=== PATIENT | female | born 1975 | race Caucasian/White ===

== ENCOUNTER 2019-11-16 19:39 | Emergency (ER) | payer MEDICAID, OTHER ==
[2019-11-16 19:56] VITALS: BP 140/94; PULSE 86
--- NOTE | 2019-11-16 19:56 | EDM.PDOC ---
ED HPI GENERAL MEDICAL PROBLEM - General Chief Complaint: Skin Complaint Stated Complaint: BIT BY DOG Time Seen by Provider: 11/16/19 19:43 Source of Information: Reports: Patient, Family History Limitations: Reports: No Limitations - History of Present Illness INITIAL COMMENTS - FREE TEXT/NARRATIVE: Patient states about 30 minutes ago prior to arrival she was bit by neighbor's dog when getting in between her dog and the neighbors dog. She states the dog weighs approximately 40 pounds and there is a small [employer] like dog all of her shots are up-to-date Patient states she has no medical problems Onset: Today, Sudden Duration: Minutes: Location: Reports: Upper Extremity, Right Quality: Reports: Pressure Hand Pain Score (Numeric/FACES): 3 - Related Data Allergies Allergy/AdvReac Type Severity Reaction Status Date / Time No Known Allergies Allergy Verified 11/16/19 19:47 Home Meds: Home Meds Omeprazole 20 mg PO QAM 03/25/15 [History] lamoTRIgine [Lamictal] 350 mg PO QAM 03/25/15 [History] Venlafaxine [Effexor] 225 mg PO DAILY 02/21/16 [History] Methylphenidate HCl [Methylphenidate LA] 11/16/19 [History] lisinopriL [Lisinopril] 1 tab PO DAILY 11/16/19 [History] Past Medical History HEENT History: Reports: Impaired Vision Cardiovascular History: Reports: Hypertension Respiratory History: Reports: Sleep Apnea Other Respiratory History: Patient use CPAP machine at night. 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 Musculoskeletal History: Reports: Back Pain, Chronic, Other (See Below) Other Musculoskeletal History: L shoulder pain Neurological History: Reports: Other (See Below) Other Neuro History: restless legs Psychiatric History: Reports: Anxiety, Depression, Other (See Below) Other Psychiatric History: Borderline personality. Endocrine/Metabolic History: Reports: Obesity/BMI 30+ Hematologic History: Reports: Iron Deficiency Other Dermatologic History: history of eczema - Past Surgical History GI Surgical History: Reports: Bariatric Procedure Female Surgical History: Reports: Tubal Ligation Musculoskeletal Surgical History: Reports: Carpal Tunnel - History Comment History Comment: Sleep disorder Social & Family History - Caffeine Use Caffeine Use: Reports: Energy Drinks ED ROS GENERAL - Review of Systems Review Of Systems: See Below Constitutional: Reports: No Symptoms HEENT: Reports: No Symptoms GI/Abdominal: Reports: No Symptoms Musculoskeletal: Denies: Joint Pain, Joint Swelling, Muscle Pain, Muscle Stiffness Skin: Reports: Other (Superficial laceration and puncture wound to the right hand laceration on the fourth puncture wounds on the third second) Neurological: Reports: No Symptoms, Other (No loss of sensation or coldness no discoloration patient states no pain with movement of the finger). Denies: Numbness, Tingling Hematologic/Lymphatic: Reports: No Symptoms Immunologic: Reports: No Symptoms ED EXAM, SKIN/RASH Exam: See Below Exam Limited By: No Limitations General Appearance: Alert, WD/WN, No Apparent Distress Extremities: Normal Inspection, Normal Range of Motion, Non-Tender, Normal Capillary Refill, Other (Exam to the right hand right fourth there is 1/2 cm x 3 mm x 1 mm laceration across the DIP area of the dorsal part of the hand there is a superficial puncture wound to the posterior second digit at the DIP area as well and a superficial puncture wound to the third posterior DIP area patient has normal FDS FDP and extensors across all fingers normal cap refill equal soft touch sensation she has full range of motion normal abduction abduction opposition) Neurological: Alert, Oriented, CN II-XII Intact, Normal Cognition, Normal Gait, No Motor/Sensory Deficits Psychiatric: Normal Affect, Normal Mood Course - Vital Signs Text/Narrative:: We will cover the patient with Augmentin 875 1 p.o. twice daily x10 days as per Mabel antimicrobial guide Patient was educated at length on any wound infection and signs and symptoms of tenosynovitis and for need for follow-up patient also educated on reason why wound was not closed understanding with the reason Patient was soaked in normal saline Hibiclens dressed with Neosporin and Telfa pad Last Recorded V/S: Last Vital Signs Temp 36.6 C 11/16/19 19:52 Pulse 86 11/16/19 19:52 Resp 14 11/16/19 19:52 BP 140/94 H 11/16/19 19:52 Pulse Ox 94 L 11/16/19 19:52 - Orders/Labs/Meds Meds: Medications Discontinued Medications Generic Name Dose Route Start Last Admin Trade Name Freq PRN Reason Stop Dose Admin Amoxicillin/Clavulanate Potassium 1 tab 11/16/19 20:03 11/16/19 20:08 Augmentin 875 Mg/125 Mg PO 11/16/19 20:04 1 tab ONETIME ONE Administration Departure - Departure Time of Disposition: 19:55 Disposition: Home, Self-Care 01 Condition: Good Clinical Impression: Dog bite of finger - Discharge Information *PRESCRIPTION DRUG MONITORING PROGRAM REVIEWED*: No *COPY OF PRESCRIPTION DRUG MONITORING REPORT IN PATIENT JULIA: No Instructions: Animal Bite, Adult, [id number] Referrals: Trish Hardin MD [Primary Care Provider] - Forms: ED Department Discharge Additional Instructions: Keep the area clean with hot warm soapy water 3-4 times a day apply Neosporin 3- 4 times a day keep it covered and dry Take all of your antibiotics Augmentin 875 1 tablet every 12 hours until the last pill is finished Follow-up with your regular doctor in 24 to 48 hours make sure you watch for any redness swelling pain stiffness to the finger or anything that feels abnormal make sure you go to your regular doctor at the first sign of any of this Return to the ER if anything changes or gets worse You may return to work in 3 days off work sure you wash your hands keep the area clean and dry , wear gloves as needed and directed Sepsis Event Note - Focused Exam Date Exam was Performed: 11/17/19 Time Exam was Performed: 13:19 - Problem List & Annotations (1) Dog bite of finger SNOMED Code(s): 617598559 Code(s): S61.259A - OPEN BITE OF UNSP FINGER WITHOUT DAMAGE TO NAIL, INIT ENCNTR; W54.0XXA - BITTEN BY DOG, INITIAL ENCOUNTER Status: Acute - Assessment/Plan Plan: 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
[2019-11-16] MEDS ORDERED: Amoxicillin/Clavulanate K 875-125 MG Tab PO ONE (20:03)
== END 2019-11-16 20:23 | disposition home or self-care (01) ==
LOC: VM.ED 19:39
DX: S61.254A Open bite of right ring finger without damage to nail, initial encounter (principal); S60.470A Other superficial bite of right index finger, initial encounter; S60.472A Other superficial bite of right middle finger, initial encounter; I10 Essential (primary) hypertension; G47.30 Sleep apnea, unspecified; E66.9 Obesity, unspecified; F41.9 Anxiety disorder, unspecified; F32.9 Major depressive disorder, single episode, unspecified; Z79.899 Other long term (current) drug therapy; W54.0XXA Bitten by dog, initial encounter; Y93.89 Activity, other specified
CPT/HCPCS: 99283; A9270

== ENCOUNTER 2019-12-11 05:15 | Emergency (ER) | payer MEDICAID ==
[2019-12-11] MEDS ORDERED: Sodium Chloride 0.9% 10 ML Syringe FLUSH PRN (05:21)
[2019-12-11] MEDS ORDERED: EPINEPHrine 1 MG/1 ML Amp IM ONE (05:25)
[2019-12-11] MEDS ORDERED: methylPREDNISolone Sodium Succinate 125 MG/2 ML SDV IV ONE (05:28)
[2019-12-11] MEDS ORDERED: diphenhydrAMINE 50 MG/ML SDV IVPUSH ONE (05:28)
[2019-12-11] MEDS ORDERED: Sodium Chloride 0.9% 1,000 ML IV ONE (05:34)
[2019-12-11] MEDS ORDERED: Ondansetron 4 MG/2 ML SDV IVPUSH ONE (05:39)
--- NOTE | 2019-12-11 05:48 | EDM.PDOC ---
ED HPI GENERAL MEDICAL PROBLEM - General Chief Complaint: Allergic Reaction Time Seen by Provider: 12/11/19 05:15 Source of Information: Reports: Patient History Limitations: Reports: No Limitations - History of Present Illness INITIAL COMMENTS - FREE TEXT/NARRATIVE: Pt. presents to ER with complaints of swelling to lower lip. Pt. states that she was at work when it started. She denies any new medications or foods. She states that she takes lisinopril and metoprolol for hypertension and has for some time. She denies any trouble breathing. Complains of tingling sensation and swelling to R side of lower lip and face. No large areas of urticaria. No history of hereditary angioedema that she is aware of. Pt. complains of feeling agitated and shaky. Denies any chest pain or shortness of breath. No fever, chills, or recent illnesses. No nausea, vomiting or diarrhea. - Related Data Allergies Allergy/AdvReac Type Severity Reaction Status Date / Time No Known Allergies Allergy Verified 11/16/19 19:47 Home Meds: Home Meds Omeprazole 20 mg PO QAM 03/25/15 [History] lamoTRIgine [Lamictal] 350 mg PO QAM 03/25/15 [History] Venlafaxine [Effexor] 225 mg PO DAILY 02/21/16 [History] Methylphenidate HCl [Methylphenidate LA] 11/16/19 [History] lisinopriL [Lisinopril] 1 tab PO DAILY 11/16/19 [History] Past Medical History HEENT History: Reports: Impaired Vision Cardiovascular History: Reports: Hypertension Respiratory History: Reports: Sleep Apnea Other Respiratory History: Patient use CPAP machine at night. 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 Musculoskeletal History: Reports: Back Pain, Chronic, Other (See Below) Other Musculoskeletal History: L shoulder pain Neurological History: Reports: Other (See Below) Other Neuro History: restless legs Psychiatric History: Reports: Anxiety, Depression, Other (See Below) Other Psychiatric History: Borderline personality. Endocrine/Metabolic History: Reports: Obesity/BMI 30+ Hematologic History: Reports: Iron Deficiency Other Dermatologic History: history of eczema - Past Surgical History GI Surgical History: Reports: Bariatric Procedure Female Surgical History: Reports: Tubal Ligation Musculoskeletal Surgical History: Reports: Carpal Tunnel - History Comment History Comment: Sleep disorder Social & Family History - Caffeine Use Caffeine Use: Reports: Energy Drinks ED ROS GENERAL - Review of Systems Review Of Systems: See Below Constitutional: Reports: No Symptoms HEENT: Reports: Other (facial swelling/numbness/discomfort) Respiratory: Reports: No Symptoms Cardiovascular: Reports: No Symptoms Endocrine: Reports: No Symptoms GI/Abdominal: Reports: No Symptoms : Reports: No Symptoms Musculoskeletal: Reports: No Symptoms Skin: Reports: No Symptoms Neurological: Reports: No Symptoms Psychiatric: Reports: No Symptoms Hematologic/Lymphatic: Reports: No Symptoms Immunologic: Reports: No Symptoms ED EXAM, GENERAL - Physical Exam Exam: See Below Exam Limited By: No Limitations General Appearance: Alert, WD/WN, No Apparent Distress Eye Exam: Bilateral Eye: EOMI, PERRL Nose: Normal Inspection, Normal Mucosa, No Blood Throat/Mouth: No Airway Compromise, Other (Edema noted to L side of lower lip. No edema to the tongue or oropharynx. Fine, mildly erythematous, finely raised rash to face and upper torso.) Head: Atraumatic, Normocephalic Neck: Normal Inspection, Supple, Non-Tender, Full Range of Motion Respiratory/Chest: No Respiratory Distress, Lungs Clear, Normal Breath Sounds, No Accessory Muscle Use, Chest Non-Tender Cardiovascular: Normal Peripheral Pulses, Regular Rate, Rhythm, No Edema, No Gallop, No JVD, No Murmur, No Rub Peripheral Pulses: 4+: Radial (L) GI/Abdominal: Soft, Non-Tender, No Distention, No Mass (Female) Exam: Deferred Rectal (Female) Exam: Deferred Back Exam: Normal Inspection, Full Range of Motion Extremities: Normal Inspection, Normal Range of Motion, Non-Tender, No Pedal Edema, Normal Capillary Refill Neurological: Alert, Oriented, CN II-XII Intact, Normal Cognition, Normal Gait, Normal Reflexes, No Motor/Sensory Deficits Psychiatric: Normal Affect, Anxious Skin Exam: Warm, Dry, Intact, Normal Color, Rash Lymphatic: No Adenopathy Course - Orders/Labs/Meds Orders: Active Orders 24 hr Category Date Time Status EKG Documentation Completion [RC] STAT Care 12/11/19 05:21 Inactive Chest 1V Frontal [CR] Stat Exams 12/11/19 05:21 Stop Req COMPLEMENT C4 [REF] Stat Lab 12/11/19 05:54 Received Sodium Chloride 0.9% [Saline Flush] Med 03/15/20 05:21 Active 10 ml FLUSH ASDIRECTED PRN Peripheral IV Insertion Adult [OM.PC] Routine Oth 12/11/19 05:23 Ordered Medication Orders Sodium Chloride (Saline Flush) 10 ml FLUSH ASDIRECTED PRN PRN Reason: Keep Vein Open Labs: Laboratory Tests 12/11/19 12/11/19 12/11/19 Range/Units 05:54 05:54 05:54 WBC 8.2 (4.0-10.0) x10^3/uL RBC 3.96 L (4.00-5.50) x10^6/uL Hgb 11.1 L D (12.0-16.0) g/dL Hct 33.5 (33.0-47.0) % MCV 84.6 (78.0-93.0) fL MCH 28.0 (26.0-32.0) pg MCHC 33.1 (32.0-36.0) g/dL RDW Coeff of Giacomo 13.7 (10.0-15.0) % Plt Count 279 (130-400) x10^3/uL Neut % (Auto) 67.6 (50.0-80.0) % Lymph % (Auto) 26.9 (25.0-50.0) % Polk % (Auto) 5.2 (2.0-11.0) % Eos % (Auto) 0.1 (0.0-4.0) % Baso % (Auto) 0.2 (0.2-1.2) % PT 9.8 L (10.0-12.8) SEC INR 0.9 L (2.0-3.5) Sodium 141 (136-145) mmol/L Potassium 3.7 (3.5-5.1) mmol/L Chloride 104 (98-107) mmol/L Carbon Dioxide 25 (21-32) mmol/L Anion Gap 15.7 (10-20) mmol/L BUN 15 (7-18) mg/dL Creatinine 0.9 (0.55-1.02) mg/dL Est Cr Clr Drug Dosing TNP Estimated GFR (MDRD) > 60 Glucose 99 (74-106) mg/dL Calcium 8.5 (8.5-10.1) mg/dL Corrected Calcium 8.90 (8.5-10.1) mg/dL Magnesium 1.8 (1.8-2.4) mg/dL Total Bilirubin 0.2 (0.2-1.0) mg/dL AST 19 (15-37) U/L ALT 20 (14-59) U/L Alkaline Phosphatase 55 (46-116) U/L Troponin I < 0.017 (<=0.056) ng/mL C-Reactive Protein 1.3 H (<=0.9) mg/dL Total Protein 6.8 (6.4-8.2) g/dL Albumin 3.5 (3.4-5.0) g/dL Globulin 3.3 Albumin/Globulin Ratio 1.06 TSH, Ultra Sensitive 2.493 (0.358-3.74) uIU/mL Meds: Medications Generic Name Dose Route Start Last Admin Trade Name Freq PRN Reason Stop Dose Admin Sodium Chloride 10 ml 12/11/19 05:21 Saline Flush FLUSH ASDIRECTED PRN Keep Vein Open Discontinued Medications Generic Name Dose Route Start Last Admin Trade Name Freq PRN Reason Stop Dose Admin Diphenhydramine HCl 50 mg 12/11/19 05:28 12/11/19 05:49 Benadryl IVPUSH 12/11/19 05:29 50 mg ONETIME ONE Administration Epinephrine HCl 0.5 mg 12/11/19 05:25 12/11/19 05:36 Adrenalin IM 12/11/19 05:26 0.5 mg ONETIME ONE Administration Sodium Chloride 1,000 mls @ 1,000 mls/hr 12/11/19 05:34 12/11/19 05:45 Normal Saline IV 12/11/19 06:33 1,000 mls/hr .BOLUS ONE Administration Methylprednisolone Sodium Succinate 125 mg 12/11/19 05:28 12/11/19 05:50 Solu-Medrol IV 12/11/19 05:29 125 mg ONETIME ONE Administration Ondansetron HCl 4 mg 12/11/19 05:39 12/11/19 06:10 Zofran IVPUSH 12/11/19 05:40 4 mg ONETIME ONE Administration Prednisone 1 packet 12/11/19 07:09 12/11/19 07:18 Take Home: Prednisone 20 Mg, 2 Tab Pack PO 12/11/19 07:10 1 packet ONETIME ONE Administration - Re-Assessments/Exams Free Text/Narrative Re-Assessment/Exam: 12/11/19 06:17 Pt. was given epinephrine 0.5mg IM, diphenhydramine 50mg IV, and solu medrol 125mg IV. She was also given zofran 4mg IV for nausea. Very rapidly the size of the lower lip decreased in size. Departure - Departure Time of Disposition: 07:30 Disposition: Home, Self-Care 01 Clinical Impression: Angioedema - Discharge Information Instructions: Angioedema, [id number], Epinephrine injection (Auto-injector), Prednisone tablets Forms: ED Department Discharge Additional Instructions: Prednisone 20 mg 2 tabs once daily for 7 days total Use epi pen as needed for similar reaction Follow-up in clinic in 7-10 days Hold lisinopril. Monitor you blood pressure. You will likely need to start on another agent for your BP. Sepsis Event Note - Focused Exam Date Exam was Performed: 12/11/19 Time Exam was Performed: 07:19 - My Orders Last 24 Hours: My Active Orders 12/11/19 05:21 EKG Documentation Completion [RC] STAT Chest 1V Frontal [CR] Stat Sodium Chloride 0.9% [Saline Flush] 10 ml FLUSH ASDIRECTED PRN 12/11/19 05:23 Peripheral IV Insertion Adult [OM.PC] Routine 12/11/19 05:54 COMPLEMENT C4 [REF] Stat - Assessment/Plan Last 24 Hours: My Active Orders 12/11/19 05:21 EKG Documentation Completion [RC] STAT Chest 1V Frontal [CR] Stat Sodium Chloride 0.9% [Saline Flush] 10 ml FLUSH ASDIRECTED PRN 12/11/19 05:23 Peripheral IV Insertion Adult [OM.PC] Routine 12/11/19 05:54 COMPLEMENT C4 [REF] Stat Plan: Prednisone 20 mg 2 tabs once daily for 7 days total Use epi pen as needed for similar reaction Follow-up in clinic in 7-10 days Hold lisinopril. Monitor you blood pressure. You will likely need to start on another agent for your BP.
[2019-12-11 06:41] LABS: CHLORIDE,CL 104 mmol/L (98-107); SODIUM,NA 141 mmol/L (136-145)
[2019-12-11 06:43] LABS: ANION GAP 15.7 mmol/L (10-20)
[2019-12-11] MEDS ORDERED: Take Home: predniSONE 20 MG, 2 Tab Pack PO ONE (07:09)
[2019-12-11 08:27] VITALS: BP 138/84; PULSE 104
== END 2019-12-11 07:30 | disposition home or self-care (01) ==
LOC: VM.ED 05:15
DX: T78.3XXA Angioneurotic edema, initial encounter (principal)
CPT/HCPCS: 36415; 80053; 83735; 84443; 84484; 85025; 85610; 86140; 86160; 96361; 96372; 96374; 96375; 99284-25; A9270-GY; J0171; J1200; J2405; J2930; J7030

== ENCOUNTER 2020-01-05 14:31 | Emergency (ER) | payer MEDICAID ==
[2020-01-05] MEDS ORDERED: Ondansetron 4 MG/2 ML SDV IV ONE (14:35)
[2020-01-05] MEDS ORDERED: fentaNYL 100 MCG/2 ML SDV IVPUSH ONE (14:37)
[2020-01-05] MEDS: Lactated Ringers 1,000 ML IV ONE ×2 (14:41→16:24)
--- NOTE | 2020-01-05 14:41 | EDM.PDOC ---
ED HPI GENERAL MEDICAL PROBLEM - General Stated Complaint: ER Time Seen by Provider: 01/05/20 14:36 Source of Information: Reports: Patient History Limitations: Reports: No Limitations - History of Present Illness INITIAL COMMENTS - FREE TEXT/NARRATIVE: Patient comes emergency department today by ambulance from home after she was walking down some steps her foot slipped and she fell injuring her right ankle. She did not hit her head. There was no loss of consciousness. She denies any head neck or back pain. It was noted by EMS that she has an obvious deformity to the right ankle. She was given Dilaudid prior to transfer as well as a splint. Patient denies any other injury other than to her right ankle denies any right knee or hip pain. She denies any head neck or back pain or loss of consciousness. Right Ankle Pain Score (Numeric/FACES): 10 - Related Data Allergies Allergy/AdvReac Type Severity Reaction Status Date / Time No Known Allergies Allergy Verified 01/05/20 14:52 Home Meds: Home Meds lamoTRIgine [Lamictal] 350 mg PO QAM 03/25/15 [History] Venlafaxine [Effexor] 150 mg PO DAILY 02/21/16 [History] Methylphenidate HCl [Methylphenidate LA] 40 mg PO DAILY 11/16/19 [History] lisinopriL [Lisinopril] 40 mg PO DAILY 11/16/19 [History] ClonazePAM [KlonoPIN] 0.5 mg PO BID PRN 01/05/20 [History] Iron,Carbonyl/Ascorbic Acid [Iron 100-Vitamin C Tablet] 1 tab PO DAILY 01/05/20 [History] Metoprolol Succinate 50 mg PO BID 01/05/20 [History] Pantoprazole Sodium [Protonix] 40 mg PO DAILY 01/05/20 [History] Venlafaxine HCl [Venlafaxine ER] 75 mg PO DAILY 01/05/20 [History] Past Medical History HEENT History: Reports: Impaired Vision Cardiovascular History: Reports: Hypertension Respiratory History: Reports: Sleep Apnea Other Respiratory History: Patient use CPAP machine at night. 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 Musculoskeletal History: Reports: Back Pain, Chronic, Other (See Below) Other Musculoskeletal History: L shoulder pain Neurological History: Reports: Other (See Below) Other Neuro History: restless legs Psychiatric History: Reports: Anxiety, Depression, Other (See Below) Other Psychiatric History: Borderline personality. Endocrine/Metabolic History: Reports: Obesity/BMI 30+ Hematologic History: Reports: Iron Deficiency Other Dermatologic History: history of eczema - Past Surgical History GI Surgical History: Reports: Bariatric Procedure Female Surgical History: Reports: Tubal Ligation Musculoskeletal Surgical History: Reports: Carpal Tunnel - History Comment History Comment: Sleep disorder Social & Family History - Caffeine Use Caffeine Use: Reports: Energy Drinks Review of Systems - Review of Systems Review Of Systems: Comprehensive ROS is negative, except as noted in HPI. ED EXAM, GENERAL - Physical Exam Exam: See Below Exam Limited By: No Limitations General Appearance: Alert, WD/WN, Moderate Distress Eye Exam: Bilateral Eye: EOMI Ears: Normal External Exam, Hearing Grossly Normal Nose: Normal Inspection Throat/Mouth: Normal Inspection Head: Atraumatic, Normocephalic Neck: Normal Inspection, Supple, Non-Tender, Full Range of Motion Respiratory/Chest: No Respiratory Distress, Lungs Clear, Normal Breath Sounds, No Accessory Muscle Use Cardiovascular: Normal Peripheral Pulses, Regular Rate, Rhythm Peripheral Pulses: 2+: Radial (L), Radial (R), Posterior Tibial (L), Posterior Tibial (R), Dorsalis Pedis (L), Dorsalis Pedis (R) GI/Abdominal: Normal Bowel Sounds, Soft, Non-Tender (Female) Exam: Deferred Rectal (Female) Exam: Deferred Back Exam: Normal Inspection, Full Range of Motion Extremities: Normal Range of Motion, No Pedal Edema. No: Normal Inspection ( The right ankle clearly has a displaced lateral appearance with tenting of the skin over the right medial malleolus. The foot is also rotated to the right. There is a superficial abrasion to the right malleolus as well. The rest of the right lower extremity is unremarkable and atraumatic. There is a moderate amount of swelling to the right ankle already as well. ) Neurological: Alert, Oriented, Normal Cognition, No Motor/Sensory Deficits Psychiatric: Anxious Skin Exam: Warm, Dry, Intact, Normal Color ED TRAUMA EXTREMITY PROCEDURES - Joint Reduction Right Ankle Sedation: Conscious Sedation (By MEGHAN Ventura) Pre-Procedure NV Status: Normal Post-Procedure NV Status: Normal Technique: Traction/Counter Traction Post-Reduction Imaging: Completely Reduced, Fracture Seen Joint Reduction Complications: No Course - Vital Signs Last Recorded V/S: Last Vital Signs Temp 35.5 C L 01/05/20 14:49 Pulse 75 01/05/20 14:49 Resp 20 01/05/20 14:49 BP 133/84 01/05/20 14:49 Pulse Ox 97 01/05/20 14:49 - Orders/Labs/Meds Meds: Medications Discontinued Medications Generic Name Dose Route Start Last Admin Trade Name Freq PRN Reason Stop Dose Admin Hydrocodone Bitart/Acetaminophen 1 packet 01/05/20 17:03 01/05/20 17:29 Take Home: Acetaminophen/Hydrocodone 325-10mg PO 01/05/20 17:04 1 packet ONETIME ONE Administration Hydrocodone Bitart/Acetaminophen 1 tab 01/05/20 17:03 01/05/20 17:29 Hachita 325-5 Mg PO 01/05/20 17:04 1 tab ONETIME ONE Administration Fentanyl 100 mcg 01/05/20 14:37 01/05/20 14:43 Sublimaze IVPUSH 01/05/20 14:38 100 mcg ONETIME ONE Administration Lactated Ringer's 1,000 mls @ 999 mls/hr 01/05/20 14:35 01/05/20 16:24 Ringers, Lactated IV 01/05/20 15:35 999 mls/hr ONETIME ONE Administration Ketamine HCl Confirm 01/05/20 15:45 Ketalar Administered 01/05/20 15:46 Dose 200 mg .ROUTE .STK-MED ONE Midazolam HCl 2 mg 01/05/20 15:12 01/05/20 15:16 Versed 1 Mg/Ml IVPUSH 01/05/20 15:13 2 mg ONETIME ONE Administration Midazolam HCl Confirm 01/05/20 15:21 Versed 1 Mg/Ml Administered 01/05/20 15:22 Dose 2 mg .ROUTE .STK-MED ONE Ondansetron HCl 4 mg 01/05/20 14:35 Zofran IV 01/05/20 14:36 ONETIME ONE Ondansetron HCl Confirm 01/05/20 16:03 Zofran Administered 01/05/20 16:04 Dose 8 mg .ROUTE .STK-MED ONE - Radiology Interpretation Free Text/Narrative:: Acute fracture dislocation of the ankle mortise resulting in mortise disruption. tri malleolar comminuted fracture post reduction shows reduction of the displace right ankle mortise. - Re-Assessments/Exams Free Text/Narrative Re-Assessment/Exam: 01/05/20 17:15 The patient initially was given fentanyl IV but continued to have quite a bit of pain. She was also given 2 mg of Versed which really relaxed her. X-ray shows a dislocated trimalleolar fracture of the right ankle with disruption of the ankle mortise. The risk and benefits were explained to the patient of a closed reduction with moderate sedation by anesthesia the patient gave verbal and written consent. After a timeout was completed the correct patient side of procedure and the rest of the information was verified. The sedation was administered and monitored by Lorenzo richard [employer]LE[employer]. Please see his notes. After good moderate sedation was verified with traction and counter traction and distraction I was able to reduce the right ankle fracture and get it into a more neutral position. CMS is still appropriate. A stockinette and batting was placed and well padded. A sugar tong splint was applied with the foot and ankle in the neutral position. The leg was elevated and ice applied. Post reduction films show good reduction with regards to the ankle mortise. Fragments still displaced but better position. I called and spoke with Dr. Kyle the headline writer monorail operator at [facility]. HPI ER COurse findings and concerns were relayed to him. He did have the pre and post films available for his review. He was comfortable with the plan and reduction and discharge home to see her in the clinic thursday or thursday. The patient awoke from moderate sedation well without any complications. CMS still intact. Discussed the plan of care with her. She is comfortable with this plan and her questions answered. We will send home soem 10-325 hydrocodone and a RX to fill tomorrow. She has her own crutches at home. Departure - Departure Time of Disposition: 16:55 Disposition: Home, Self-Care 01 Clinical Impression: Closed trimalleolar fracture - Discharge Information Instructions: Closed Reduction for Ankle Fracture or Dislocation, Crutch Use, Adult, [id number], Cast or Splint Care, Adult, [id number], Pain Medicine Instructions, [id number] Referrals: Trish Hardin MD [Primary Care Provider] - Additional Instructions: RICE therapy. Rest ICE as possible as possible. Compression from the splint. Elevation above the level of the heart. When you are not walking with crutches you need to be laying down with your ankle above the level of your heart. Crutch walking, no weight bearing to the right ankle at all. Tylenol as needed for pain. Try to Use NSAIDs such as Ibuprofen or aleve sparingly. If pain not controlled with above. Hachita 10/325, 1/2-1 tablet every 4 hrs with food as needed for pain. Caution sedation. Starter pack from the ED sent home with the patient and prescription for #20 given to the patient. Return to the ED if new or worsening symptoms. Contact [facility] Thursday morning at [phone] and make a follow up appointment with DR. Mcgarry, Surgery probably not for a week most likely. Sepsis Event Note - Focused Exam Vital Signs: Vital Signs Temp Pulse Resp BP Pulse Ox 01/05/20 14:49 35.5 C L 75 20 133/84 97 Date Exam was Performed: 01/05/20 Time Exam was Performed: 17:35 - Assessment/Plan Assessment:: Displace closed right trimalleolar fracture. Closed reduction of the above with moderate sedation with Lorenzo [employer] for moderate sedation. Splinting of the trimalleolar fracture by myself. Plan: RICE therapy. Rest ICE as possible as possible. Compression from the splint. Elevation above the level of the heart. When you are not walking with crutches you need to be laying down with your ankle above the level of your heart. Crutch walking, no weight bearing to the right ankle at all. Tylenol as needed for pain. Try to Use NSAIDs such as Ibuprofen or aleve sparingly. If pain not controlled with above. Hachita 10/325, 1/2-1 tablet every 4 hrs with food as needed for pain. Caution sedation. Starter pack from the ED sent home with the patient and prescription for #20 given to the patient. Return to the ED if new or worsening symptoms. Contact [facility] Thursday at [phone] and make a follow up appointment with DR. Mcgarry, Surgery probably not for a week most likely.
[2020-01-05] MEDS ORDERED: Midazolam 1 MG/ML 2 ML SDV IVPUSH ONE (15:12)
[2020-01-05] MEDS ORDERED: Midazolam 1 MG/ML 2 ML SDV ONE (15:21)
[2020-01-05] MEDS ORDERED: Ketamine 200 MG/20 ML MDV ONE (15:45)
[2020-01-05] MEDS ORDERED: Ondansetron 4 MG/2 ML SDV ONE (16:03)
--- NOTE | 2020-01-05 16:39 | CR ---
[id number] RAD/RAD Ankle Right 3V Min Exam: RAD Ankle Right 3V Min Indication:FALL OBVIOUS DEFORMITY. Comparison: No prior imaging for comparison. Discussion: Acute fracture dislocation involving the ankle mortise. Fractures of the distal tibia and fibula. Tibial fracture comminuted and displaced. Tibia is dislocated an entire shaft width shaft width anterior in relation to the talar dome. No contact between the tibial plafond and talar dome. AP view demonstrates medial dislocation of the tibia in relation to the talar dome as well by nearly a shaft width. Tibial fracture is comminuted and displaced as well. Proximal fragment of the tibia fracture is displaced anterior at least 36 mm. Distal fragment measures 47 x 23 x 21 mm and contains the fibular tip. Impression: Acute fracture dislocation of the ankle mortise resulting in mortise disruption described above. Elmer Hubbard MD 01/05/20 1366 Thank you for allowing us to participate in the care of your patient.
--- NOTE | 2020-01-05 16:58 | CR ---
[id number] RAD/RAD Ankle Right 2V Exam: RAD Ankle Right 2V Indication:POST REDUCTION. Comparison: Today. Discussion: Improved alignment of the ankle mortise and fracture fragments following reduction. Cast been applied. Impression: Post reduction. Elmer Hubbard MD 01/05/20 [id number] Thank you for allowing us to participate in the care of your patient.
[2020-01-05] MEDS ORDERED: Acetaminophen/HYDROcodone 325-5 MG Tab PO ONE (17:03)
[2020-01-05] MEDS ORDERED: Take Home: Acetaminophen/HYDROcodone 325-10 MG, 5 Tab Pack PO ONE (17:03)
[2020-01-05 20:33] VITALS: BP 135/64; PULSE 83
== END 2020-01-05 19:22 | disposition home or self-care (01) ==
LOC: VM.ED 14:31
DX: S82.851A Displaced trimalleolar fracture of right lower leg, initial encounter for closed fracture (principal); I10 Essential (primary) hypertension; F41.9 Anxiety disorder, unspecified; F32.9 Major depressive disorder, single episode, unspecified; Z79.899 Other long term (current) drug therapy; E66.9 Obesity, unspecified; Z68.41 Body mass index [BMI] 40.0-44.9, adult; W01.0XXA Fall on same level from slipping, tripping and stumbling without subsequent striking against object, initial encounter
CPT/HCPCS: 27818; 73600; 73610; 96361; 96374; 99152; 99284; A9270; J2250; J3010; J7120

== ENCOUNTER 2020-08-09 23:25 | Emergency (ER) | payer MEDICAID ==
[2020-08-09] MEDS ORDERED: cloNIDine 0.1 MG Tab PO ONE (23:39)
[2020-08-09] MEDS ORDERED: Ondansetron 4 MG Tab.DIS PO ONE (23:43)
--- NOTE | 2020-08-09 23:51 | EDM.PDOC ---
ED HPI GENERAL MEDICAL PROBLEM - General Chief Complaint: General Stated Complaint: hypertension Time Seen by Provider: 08/09/20 23:36 Source of Information: Reports: Patient History Limitations: Reports: No Limitations - History of Present Illness INITIAL COMMENTS - FREE TEXT/NARRATIVE: Patient comes emergency department today from home with complaints of a headache and concerns for hypertension. Patient has longstanding history of hypertension. She regularly is able to identify when her blood pressure is high because she gets a headache nausea pressure behind her eyes. For the past 3 to 4 days she has had shaking tremors which is another sign of her hypertension as well as a headache and pressure behind her eyes. She has no recent falls or trauma to her head. She has no visual acuity changes. She does complain of some dizziness. No vertigo type symptoms. No chest pain no shortness of breath or difficulty breathing. No syncope. No paresthesias of her upper or lower extremities. No change in the functionality of her upper or lower extremities. She denies any abdominal pain. But she does have some nausea and she has vomited x1. No hematuria dysuria or urinary frequency. No black or tarry stools. No Covid exposure no Covid symptoms. She has had no recent changes in her blood pressure medication. Although her blood pressure fluctuates on the r egular basis. Typically she relates her blood pressures in the 120s to 130s systolically. Although intermittently she has the severe strikes of hypertension that resolved shortly thereafter. She does not check her blood pressure on a regular basis although. This is a very similar sequelae that she typically has when she has hypertension elevation. - Related Data Allergies Allergy/AdvReac Type Severity Reaction Status Date / Time No Known Allergies Allergy Verified 08/10/20 00:15 Home Meds: Home Meds lamoTRIgine [Lamictal] 350 mg PO QAM 03/25/15 [History] Venlafaxine [Effexor] 150 mg PO DAILY 02/21/16 [History] Methylphenidate HCl [Methylphenidate LA] 40 mg PO DAILY 11/16/19 [History] lisinopriL [Lisinopril] 40 mg PO DAILY 11/16/19 [History] ClonazePAM [KlonoPIN] 0.5 mg PO BID PRN 01/05/20 [History] Iron,Carbonyl/Ascorbic Acid [Iron 100-Vitamin C Tablet] 1 tab PO DAILY 01/05/20 [History] Metoprolol Succinate 50 mg PO BID 01/05/20 [History] Pantoprazole Sodium [Protonix] 40 mg PO DAILY 01/05/20 [History] Venlafaxine HCl [Venlafaxine ER] 75 mg PO DAILY 01/05/20 [History] Past Medical History HEENT History: Reports: Impaired Vision Cardiovascular History: Reports: Hypertension Respiratory History: Reports: Sleep Apnea Other Respiratory History: . 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 Musculoskeletal History: Reports: Back Pain, Chronic, Other (See Below) Other Musculoskeletal History: L shoulder pain Neurological History: Reports: Other (See Below) Other Neuro History: restless legs Psychiatric History: Reports: Anxiety, Depression, Other (See Below) Other Psychiatric History: Borderline personality. Endocrine/Metabolic History: Reports: Obesity/BMI 30+ Hematologic History: Reports: Iron Deficiency Other Dermatologic History: history of eczema - Past Surgical History GI Surgical History: Reports: Bariatric Procedure Female Surgical History: Reports: Tubal Ligation Musculoskeletal Surgical History: Reports: Carpal Tunnel - History Comment History Comment: Sleep disorder Social & Family History - Family History Family Medical History: No Pertinent Family History - Tobacco Use Tobacco Use Status *Q: Current Every Day Tobacco User Years of Tobacco use: 20 Packs/Tins Daily: 0.2 - Caffeine Use Caffeine Use: Reports: Energy Drinks ED ROS GENERAL - Review of Systems Review Of Systems: Comprehensive ROS is negative, except as noted in HPI. ED EXAM, GENERAL - Physical Exam Exam: See Below Exam Limited By: No Limitations General Appearance: Alert, WD/WN, No Apparent Distress, Anxious Eye Exam: Bilateral Eye: EOMI, PERRL Ears: Normal External Exam, Normal TMs Nose: Normal Inspection, Normal Mucosa, No Blood Throat/Mouth: Normal Inspection, Normal Lips, Normal Teeth, Normal Oropharynx, Normal Voice Head: Atraumatic, Normocephalic Neck: Normal Inspection, Supple, Non-Tender, Full Range of Motion Respiratory/Chest: No Respiratory Distress, Lungs Clear, Normal Breath Sounds, No Accessory Muscle Use, Chest Non-Tender Cardiovascular: Normal Peripheral Pulses, Regular Rate, Rhythm, No Edema, No JVD, No Murmur, No Rub Peripheral Pulses: 2+: Radial (L), Radial (R), Posterior Tibial (L), Posterior Tibial (R), Dorsalis Pedis (L), Dorsalis Pedis (R) GI/Abdominal: Normal Bowel Sounds, Soft, Non-Tender, Pelvis Stable (Female) Exam: Deferred Rectal (Female) Exam: Deferred Back Exam: Normal Inspection, Full Range of Motion Extremities: Normal Inspection, Normal Range of Motion, Non-Tender, No Pedal Edema, Normal Capillary Refill Neurological: Alert, Oriented, Normal Cognition, Normal Gait, No Motor/Sensory Deficits Psychiatric: Normal Affect, Anxious Skin Exam: Warm, Dry, Intact, Normal Color, No Rash Lymphatic: No Adenopathy #1 Interpretation EKG Date: 08/09/20 Time: 23:57 Rhythm: NSR Rate (Beats/Min): 78 [place]: Normal P-Wave: Present QRS: Normal ST-T: Normal QT: Normal Course - Vital Signs Last Recorded V/S: Last Vital Signs Temp 97.1 F 08/09/20 23:26 Pulse 75 08/10/20 00:19 Resp 18 08/09/20 23:26 BP 154/108 H 08/10/20 00:41 Pulse Ox 98 08/09/20 23:26 - Orders/Labs/Meds Labs: Laboratory Tests 08/09/20 08/09/20 08/09/20 Range/Units 23:48 23:48 23:48 WBC 6.8 (4.0-10.0) x10^3/uL RBC 3.96 L (4.00-5.50) x10^6/uL Hgb 12.2 (12.0-16.0) g/dL Hct 35.5 (33.0-47.0) % MCV 89.6 D (78.0-93.0) fL MCH 30.8 (26.0-32.0) pg MCHC 34.4 (32.0-36.0) g/dL RDW Coeff of Giacomo 12.4 (10.0-15.0) % Plt Count 269 (130-400) x10^3/uL Neut % (Auto) 58.4 (50.0-80.0) % Lymph % (Auto) 32.4 (25.0-50.0) % [place] % (Auto) 7.2 (2.0-11.0) % Eos % (Auto) 1.6 (0.0-4.0) % Baso % (Auto) 0.4 (0.2-1.2) % Sodium 140 (136-145) mmol/L Potassium 3.9 (3.5-5.1) mmol/L Chloride 103 (98-107) mmol/L Carbon Dioxide 28 (21-32) mmol/L Anion Gap 12.9 (10-20) mmol/L BUN 12 (7-18) mg/dL Creatinine 0.8 (0.55-1.02) mg/dL Est Cr Clr Drug Dosing TNP Estimated GFR (MDRD) > 60 Glucose 98 (74-106) mg/dL Calcium 8.9 (8.5-10.1) mg/dL Corrected Calcium 9.22 (8.5-10.1) mg/dL Total Bilirubin 0.2 (0.2-1.0) mg/dL AST 15 (15-37) U/L ALT 19 (14-59) U/L Alkaline Phosphatase 59 (46-116) U/L Troponin I < 0.017 (<=0.056) ng/mL Total Protein 6.6 (6.4-8.2) g/dL Albumin 3.6 (3.4-5.0) g/dL Globulin 3.0 Albumin/Globulin Ratio 1.20 Urine Color (YELLOW) Urine Appearance (CLEAR) Urine pH (5.0-8.0) Ur Specific [place] Urine Protein (NEGATIVE) mg/dL Urine Glucose (UA) (NEGATIVE) mg/dL Urine Ketones (NEGATIVE) mg/dL Urine Occult Blood (NEGATIVE) Urine Nitrite (NEGATIVE) Urine Bilirubin (NEGATIVE) Urine Urobilinogen (0.2) EU/dL Ur Leukocyte Esterase (NEGATIVE) Urine RBC (NOT SEEN) /HPF Urine WBC (NOT SEEN) /HPF Ur Squamous Epith Cells (NEGATIVE) /HPF Urine Bacteria (NEGATIVE) /HPF Urine Mucus (NEGATIVE) /LPF 08/10/20 Range/Units 00:23 WBC (4.0-10.0) x10^3/uL RBC (4.00-5.50) x10^6/uL Hgb (12.0-16.0) g/dL Hct (33.0-47.0) % MCV (78.0-93.0) fL MCH (26.0-32.0) pg MCHC (32.0-36.0) g/dL RDW Coeff of Giacomo (10.0-15.0) % Plt Count (130-400) x10^3/uL Neut % (Auto) (50.0-80.0) % Lymph % (Auto) (25.0-50.0) % [place] % (Auto) (2.0-11.0) % Eos % (Auto) (0.0-4.0) % Baso % (Auto) (0.2-1.2) % Sodium (136-145) mmol/L Potassium (3.5-5.1) mmol/L Chloride (98-107) mmol/L Carbon Dioxide (21-32) mmol/L Anion Gap (10-20) mmol/L BUN (7-18) mg/dL Creatinine (0.55-1.02) mg/dL Est Cr Clr Drug Dosing Estimated GFR (MDRD) Glucose (74-106) mg/dL Calcium (8.5-10.1) mg/dL Corrected Calcium (8.5-10.1) mg/dL Total Bilirubin (0.2-1.0) mg/dL AST (15-37) U/L ALT (14-59) U/L Alkaline Phosphatase (46-116) U/L Troponin I (<=0.056) ng/mL Total Protein (6.4-8.2) g/dL Albumin (3.4-5.0) g/dL Globulin Albumin/Globulin Ratio Urine Color Yellow (YELLOW) Urine Appearance Clear (CLEAR) Urine pH 6.0 (5.0-8.0) Ur Specific [place] 1.025 Urine Protein Trace H (NEGATIVE) mg/dL Urine Glucose (UA) Negative (NEGATIVE) mg/dL Urine Ketones Negative (NEGATIVE) mg/dL Urine Occult Blood Negative (NEGATIVE) Urine Nitrite Negative (NEGATIVE) Urine Bilirubin Small H (NEGATIVE) Urine Urobilinogen 1.0 (0.2) EU/dL Ur Leukocyte Esterase Negative (NEGATIVE) Urine RBC 0-5 (NOT SEEN) /HPF Urine WBC Not seen (NOT SEEN) /HPF Ur Squamous Epith Cells Rare (NEGATIVE) /HPF Urine Bacteria Not seen (NEGATIVE) /HPF Urine Mucus Few H (NEGATIVE) /LPF Meds: Medications Discontinued Medications Generic Name Dose Route Start Last Admin Trade Name Freq PRN Reason Stop Dose Admin Clonidine HCl 0.1 mg 08/09/20 23:39 08/09/20 23:44 Catapres PO 08/09/20 23:40 0.1 mg ONETIME ONE Administration Ondansetron HCl 4 mg 08/09/20 23:43 08/09/20 23:47 Zofran Odt PO 08/09/20 23:44 4 mg ONETIME ONE Administration - Re-Assessments/Exams Free Text/Narrative Re-Assessment/Exam: 08/10/20 00:00 EKG unremarkable. Labs drawn Zofran 4mg ODT and Clonidine 0.1mg PO. Patient's laboratory evaluation is unremarkable. She has a normal creatinine function. She has a negative troponin. The rest of her electrolytes are normal. Her urinalysis does not show gross proteinuria. Following the above administration of the clonidine her blood pressure is much improved. Her symptomology has resolved. Her neurological status is unchanged. Her tremors headache nausea etc. has resolved. With this patient's history of spikes in her blood pressure that are kind of transient. I do not feel that adjusting her medications at this time is appropriate for her chronic management. She does feel much better with the resolution of her hypertension tonight. She does not want any change in her medication as they have opted before and she has become symptomatic with hypotension. I will have her follow- up in the clinic tomorrow to recheck her blood pressure in the next few days to make sure that it is appropriate. Anything new or worse she is to recheck. She is comfortable with this plan and her questions are answered. Departure - Departure Time of Disposition: 00:43 Disposition: Home, Self-Care 01 Clinical Impression: Hypertensive crisis, unspecified - Discharge Information Instructions: Hypertension, Adult, [id number] Referrals: PCP,Unobtain [Ordering Only Provider] - Forms: ED Department Discharge Additional Instructions: Continue your previous medications. Drink plenty of fluids. Recheck blood pressure in the clinic tomorrow. Record your pressures over the weekend and follow up with Dr. Hardin next week. Return to the ED if new or worsening symptoms. Sepsis Event Note (ED) - Evaluation Sepsis Screening Result: No Definite Risk
[2020-08-10 00:12] LABS: CHLORIDE,CL 103 mmol/L (98-107); SODIUM,NA 140 mmol/L (136-145)
[2020-08-10 00:13] LABS: ANION GAP 12.9 mmol/L (10-20)
[2020-08-10 00:19] VITALS: PULSE 75
[2020-08-10 00:41] VITALS: BP 154/108
== END 2020-08-10 00:52 | disposition home or self-care (01) ==
LOC: VM.ED 23:25
DX: I16.9 Hypertensive crisis, unspecified (principal); F41.9 Anxiety disorder, unspecified; F32.9 Major depressive disorder, single episode, unspecified; E66.9 Obesity, unspecified; Z79.899 Other long term (current) drug therapy
CPT/HCPCS: 36415; 80053; 81001; 84484; 85025; 93005; 93010; 99284; A9270

== ENCOUNTER 2020-09-30 09:09 | Emergency (ER) | payer MEDICAID ==
[2020-09-30 09:44] LABS: BARBITURATE SCREEN,URINE NEGATIVE (NEGATIVE); BENZODIAZEPINES SCREEN,URINE POSITIVE (NEGATIVE); EDDP,URINE SCREEN NEGATIVE (NEGATIVE); METHAMPHETAMINE SCREEN, URINE NEGATIVE (NEGATIVE); TCA SCREEN,URINE NEGATIVE (NEGATIVE); THC SCREEN,URINE 50 NG/ML NEGATIVE (NEGATIVE)
[2020-09-30 09:57] LABS: CHLORIDE,CL 103 mmol/L (98-107); SODIUM,NA 139 mmol/L (136-145)
[2020-09-30 10:00] LABS: ACETAMINOPHEN 0 ug/ml (10-30); ANION GAP 12.7 mmol/L (10-20)
--- NOTE | 2020-09-30 10:02 | EDM.PDOCBH ---
ED HPI GENERAL MEDICAL PROBLEM - General Chief Complaint: Behavioral/Psych Stated Complaint: Mental Health Time Seen by Provider: 09/30/20 09:10 Source of Information: Reports: Patient, Police History Limitations: Reports: No Limitations - History of Present Illness INITIAL COMMENTS - FREE TEXT/NARRATIVE: 45-year-old white female that presents the ER this morning with suicidal i deations questionable suicidal plan. Patient this morning called the police department left a message where she was put that she called and spoke with Officer who then went to the residency secondary to questionable suicidal ideations with a plan. Upon arrival she told that she had drank about 16 ounces of vodka took some Xanax this about 3 AM. She also told the officers that she had plan on taking a handful of pills that she had in her pocket of mixed variety. She states she has had ongoing suicidal ideations and thoughts over the last couple weeks which is increased over the last several days due to family situations and increased stress in her life. Patient has multiple psych diagnoses on multiple medications she states she has tried suicide in the past and been placed inpatient and outpatient treatment. She was seen by psych last week the where she had a medication adjustment. She denies any visual hallucinations but states she has been hearing music 20/04 for the last week or so Duration: Week(s): Associated Symptoms: Reports: No Other Symptoms Treatments DRILLING MANAGER: Denies: Acetaminophen, Aspirin - Related Data Allergies Allergy/AdvReac Type Severity Reaction Status Date / Time No Known Allergies Allergy Verified 09/30/20 09:11 Home Meds: Home Meds lamoTRIgine [Lamictal] 350 mg PO QAM 03/25/15 [History] Venlafaxine [Effexor] 150 mg PO DAILY 02/21/16 [History] Methylphenidate HCl [Methylphenidate LA] 40 mg PO DAILY 11/16/19 [History] lisinopriL [Lisinopril] 40 mg PO DAILY 11/16/19 [History] Iron,Carbonyl/Ascorbic Acid [Iron 100-Vitamin C Tablet] 1 tab PO DAILY 01/05/20 [History] Metoprolol Succinate 50 mg PO BID 01/05/20 [History] Pantoprazole Sodium [Protonix] 40 mg PO DAILY 01/05/20 [History] Venlafaxine HCl [Venlafaxine ER] 75 mg PO DAILY 01/05/20 [History] ALPRAZolam [Xanax XR] 1 mg PO TID PRN 09/30/20 [History] Lurasidone HCl [Latuda] 60 mg PO DAILY 09/30/20 [History] Past Medical History HEENT History: Reports: Impaired Vision Cardiovascular History: Reports: Hypertension Respiratory History: Reports: Sleep Apnea Other Respiratory History: . Idiopathic hypersomnia Other BOILER TESTER History: Patient had Fallopian tubes tied. Musculoskeletal History: Reports: Back Pain, Chronic, Other (See Below) Other Musculoskeletal History: L shoulder pain Neurological History: Reports: Other (See Below) Other Neuro History: restless legs Psychiatric History: Reports: Anxiety, Depression, Other (See Below) Other Psychiatric History: Borderline personality. Endocrine/Metabolic History: Reports: Obesity/BMI 30+ Hematologic History: Reports: Iron Deficiency Other Dermatologic History: history of eczema - Past Surgical History GI Surgical History: Reports: Bariatric Procedure Female Surgical History: Reports: Tubal Ligation Musculoskeletal Surgical History: Reports: Carpal Tunnel - History Comment History Comment: Sleep disorder Social & Family History - Family History Family Medical History: No Pertinent Family History - Caffeine Use Caffeine Use: Reports: Energy Drinks ED ROS GENERAL - Review of Systems Review Of Systems: See Below Constitutional: Reports: No Symptoms HEENT: Reports: No Symptoms Respiratory: Reports: No Symptoms Cardiovascular: Reports: No Symptoms Endocrine: Reports: No Symptoms GI/Abdominal: Reports: No Symptoms : Reports: No Symptoms Musculoskeletal: Reports: No Symptoms Skin: Reports: No Symptoms Neurological: Reports: No Symptoms Psychiatric: Reports: Anxiety, Depression, Suicidal Ideation. Denies: No Symptoms Hematologic/Lymphatic: Reports: No Symptoms Immunologic: Reports: No Symptoms ED EXAM, BEHAVIORAL HEALTH - Physical Exam Exam: See Below Exam Limited By: No Limitations General Appearance: Alert, WD/WN, No Apparent Distress Eye Exam: Bilateral Eye: EOMI, PERRL Ears: Hearing Grossly Normal Nose: Normal Inspection, Normal Mucosa, No Blood Throat/Mouth: Normal Inspection, Normal Lips, Normal Teeth, Normal Gums, Normal Oropharynx, Normal Voice, No Airway Compromise Head: Atraumatic, Normocephalic Neck: Normal Inspection, Supple, Non-Tender, Full Range of Motion Respiratory/Chest: No Respiratory Distress, Lungs Clear, Normal Breath Sounds, No Accessory Muscle Use, Chest Non-Tender Cardiovascular: Normal Peripheral Pulses, Regular Rate, Rhythm, No JVD, No Murmur, No Rub GI/Abdominal: Normal Bowel Sounds, Soft, Non-Tender Back Exam: Full Range of Motion Extremities: Normal Inspection, Normal Range of Motion, No Pedal Edema Neurological: Alert, Normal Mood/Affect, CN II-XII Intact, Normal Cognition, Normal Gait, No Motor/Sensory Deficits, Oriented x 3 Psychiatric: Alert, Normal Affect, Normal Cognition, Normal Mood, Oriented Skin Exam: Warm, Dry, Intact, Normal color, No rash COURSE, BEHAVIORAL HEALTH COMP - Course Vital Signs: Last Vital Signs Temp 35.8 C L 09/30/20 09:10 Pulse 72 09/30/20 11:20 Resp 16 09/30/20 09:10 BP 150/94 H 09/30/20 11:20 Pulse Ox 95 09/30/20 09:10 Orders, Labs, Meds: Active Orders 24 hr Category Date Time Status SALICYLATE [REF] Stat Lab 09/30/20 09:30 Received Laboratory Tests 09/30/20 09/30/20 09/30/20 Range/Units 09:25 09:30 09:30 WBC 6.0 (4.0-10.0) x10^3/uL RBC 4.24 (4.00-5.50) x10^6/uL Hgb 13.2 (12.0-16.0) g/dL Hct 38.5 (33.0-47.0) % MCV 90.8 (78.0-93.0) fL MCH 31.1 (26.0-32.0) pg MCHC 34.3 (32.0-36.0) g/dL RDW Coeff of Giacomo 12.2 (10.0-15.0) % Plt Count 322 (130-400) x10^3/uL Neut % (Auto) 59.3 (50.0-80.0) % Lymph % (Auto) 32.9 (25.0-50.0) % Daniels % (Auto) 5.6 (2.0-11.0) % Eos % (Auto) 1.5 (0.0-4.0) % Baso % (Auto) 0.7 (0.2-1.2) % Sodium 139 (136-145) mmol/L Potassium 3.7 (3.5-5.1) mmol/L Chloride 103 (98-107) mmol/L Carbon Dioxide 27 (21-32) mmol/L Anion Gap 12.7 (10-20) mmol/L BUN 11 (7-18) mg/dL Creatinine 0.8 (0.55-1.02) mg/dL Est Cr Clr Drug Dosing 93.78 mL/min Estimated GFR (MDRD) > 60 Glucose 116 H (74-106) mg/dL Calcium 8.7 (8.5-10.1) mg/dL Urine Opiates Screen Negative (NEGATIVE) Ur Buprenorphine Scrn Negative (NEGATIVE) Ur Oxycodone Screen Negative (NEGATIVE) Ur EDDP (Meth Metab) Negative (NEGATIVE) Urine Methadone Screen Negative (NEGATIVE) Acetaminophen 0 L (10-30) ug/ml Ur Barbiturates Screen Negative (NEGATIVE) Ur Tricyclics Screen Negative (NEGATIVE) Ur Phencyclidine Scrn Negative (NEGATIVE) Ur Amphetamine Screen Negative (NEGATIVE) U Methamphetamines Scrn Negative (NEGATIVE) Urine MDMA Screen Negative (NEGATIVE) U Benzodiazepines Scrn Positive H (NEGATIVE) U Cocaine Metab Screen Negative (NEGATIVE) U Marijuana (THC) Screen Negative (NEGATIVE) Ethyl Alcohol 101 H (0-3) mg/dL Re-Assessment/Re-Exam: Spoke with Ning from [facility] central line education and training manager psych. Discussed the case and the patient with her at 1015 states she will speak with the patient and will go from there After the patient being uncooperative in waxing and waning with decisions it was decided upon that the patient will be placed involuntarily at [facility] in [place] discussed the case with Ning metal worker and then spoke with Eli at [place] where she is willing to be accepted if there is a bed. All lab work within normal limits UDS positive for benzos which she is prescribed Xanax is alcohol level within normal limits. Approximately 1130 now Departure - Departure Time of Disposition: 11:30 Disposition: DC/Tfer to Psych Hosp/Unit 65 Condition: Good Clinical Impression: Suicidal thoughts - Discharge Information *PRESCRIPTION DRUG MONITORING PROGRAM REVIEWED*: No *COPY OF PRESCRIPTION DRUG MONITORING REPORT IN PATIENT JULIA: No Referrals: Trish Hardin MD [Primary Care Provider] - Forms: ED Department Discharge Sepsis Event Note (ED) - Evaluation Sepsis Screening Result: No Definite Risk - Focused Exam Vital Signs: Vital Signs Temp Pulse Resp BP Pulse Ox 09/30/20 11:20 72 150/94 H 09/30/20 09:10 35.8 C L 88 16 162/111 H 95 - Problem List & Annotations (1) Suicidal thoughts SNOMED Code(s): 9499512 Code(s): R45.851 - SUICIDAL IDEATIONS Status: Acute Current Visit: Yes - My Orders Last 24 Hours: My Active Orders 09/30/20 09:30 SALICYLATE [REF] Stat bp rechecked wnl - Assessment/Plan Last 24 Hours: My Active Orders 09/30/20 09:30 SALICYLATE [REF] Stat
[2020-09-30 11:20] VITALS: BP 150/94; PULSE 72
== END 2020-09-30 12:00 ==
LOC: VM.ED 09:09
DX: R45.851 Suicidal ideations (principal); I10 Essential (primary) hypertension; F41.9 Anxiety disorder, unspecified; F32.9 Major depressive disorder, single episode, unspecified; D50.9 Iron deficiency anemia, unspecified; E66.9 Obesity, unspecified; Z68.31 Body mass index [BMI] 31.0-31.9, adult; Z79.899 Other long term (current) drug therapy
CPT/HCPCS: 36415; 80048; 80143; 80179; 80305-QW; 80307; 85025; 99284; 99285

== ENCOUNTER 2024-04-28 19:47 | Emergency (ER) | payer MEDICAID, OTHER ==
[2024-04-28] MEDS: Diphtheria,Pertussis(Acell),Tetanus Vaccine 0.5 ML Syringe IM ONE (20:40)
[2024-04-28] MEDS: Lidocaine 1% 30 ML SDV INJECT ONE (20:41)
[2024-04-28] MEDS ORDERED: Take Home: Amoxicillin/Clavulanate K 875-125 MG Tab, 2 Tab Pack PO ONE (21:13)
== END 2024-04-28 20:50 | disposition home or self-care (01) ==
LOC: MERGE 19:47 → VM.ED 19:47
DX: S62.634A Displaced fracture of distal phalanx of right ring finger, initial encounter for closed fracture (principal); S61.214A Laceration without foreign body of right ring finger without damage to nail, initial encounter; I10 Essential (primary) hypertension; E66.9 Obesity, unspecified; Z68.37 Body mass index [BMI] 37.0-37.9, adult; Z79.899 Other long term (current) drug therapy; W23.0XXA Caught, crushed, jammed, or pinched between moving objects, initial encounter
CPT/HCPCS: 12002; 73140-F8; 90471; 90715; 99283-25; J3490

== ENCOUNTER 2024-07-29 09:17 | Emergency (ER) | payer OTHER ==
[2024-07-29] MEDS ORDERED: Sodium Chloride 0.9% 10 ML Syringe FLUSH PRN (09:30)
[2024-07-29 09:46] LABS: BASOPHILS PERCENT AUTO 0.4 % (0.2-1.2); HEMOGLOBIN 12.7 g/dL (12.0-16.0); LYMPHOCYTES ABSOLUTE AUTO 1.4 x10^3/uL (1.0-4.8); LYMPHOCYTES PERCENT AUTO 29.9 % (25.0-50.0); MEAN CORPUSCULAR HGB CONC 35.3 g/dL (32.0-36.0); MEAN CORPUSCULAR VOLUME 87.8 fL (78.0-93.0); MONOCYTES ABSOLUTE AUTO 0.3 x10^3/uL (0.0-0.8); MONOCYTES PERCENT AUTO 5.6 % (2.0-11.0); NEUTROPHILS PERCENT AUTO 64.1 % (50.0-80.0); PLATELET COUNT,PLT 265 x10^3/uL (130-400); WHITE BLOOD CELL COUNT,WBC 4.7 x10^3/uL (4.0-10.0)
[2024-07-29 10:03] LABS: APPEARANCE,URINE CLEAR (CLEAR); BILIRUBIN,URINE NEGATIVE (NEGATIVE); COLOR,URINE DARK YELLOW (YELLOW); GLUCOSE,URINE NEGATIVE (NEGATIVE); KETONES,URINE NEGATIVE (NEGATIVE); LEUKOCYTE ESTERASE,URINE NEGATIVE (NEGATIVE); NITRITE,URINE NEGATIVE (NEGATIVE); OCCULT BLOOD,URINE NEGATIVE (NEGATIVE); PH,URINE 5.5 (5.0-8.0); PROTEIN,URINE NEGATIVE (NEGATIVE)
[2024-07-29 10:11] LABS: AMPHETAMINES SCREEN, URINE NEGATIVE (NEGATIVE); BARBITURATE SCREEN,URINE NEGATIVE (NEGATIVE); BENZODIAZEPINES SCREEN,URINE POSITIVE (NEGATIVE); BUPRENORPHINE SCREEN,URINE NEGATIVE (NEGATIVE); COCAINE METABOLITES,URINE NEGATIVE (NEGATIVE)
[2024-07-29 10:12] LABS: METHADONE SCREEN, URINE NEGATIVE (NEGATIVE); METHAMPHETAMINE SCREEN, URINE NEGATIVE (NEGATIVE); OXYCODONE SCREEN,URINE NEGATIVE (NEGATIVE); PCP SCREEN,URINE NEGATIVE (NEGATIVE); THC SCREEN,URINE 50 NG/ML NEGATIVE (NEGATIVE)
[2024-07-29 10:18] LABS: A/G RATIO 1.21; ALANINE AMINOTRANSFERASE,ALT 24 U/L (14-59); ALBUMIN 3.5 g/dL (3.4-5.0); ALKALINE PHOSPHATASE 82 U/L (46-116); ASPARTATE AMNIOTRANSFERASE,AST 21 U/L (15-37); BILIRUBIN TOTAL 0.3 mg/dL (0.2-1.0); BLOOD UREA NITROGEN,BUN 14 mg/dL (7-18); CALCIUM 8.5 mg/dL (8.5-10.1); CARBON DIOXIDE,CO2 28 mmol/L (21-32); CHLORIDE,CL 106 mmol/L (98-107); CREATININE 0.7 mg/dL (0.55-1.02); EST CRCL DRUG DOSING (CG) 102.71 mL/min; GLUCOSE RANDOM 113 mg/dL (70-99); MAGNESIUM 1.8 mg/dL (1.8-2.4); POTASSIUM,K 3.5 mmol/L (3.5-5.1); PROTEIN TOTAL,TP 6.4 g/dL (6.4-8.2); SODIUM,NA 142 mmol/L (136-145); TSH ULTRASENSITIVE 1.503 uIU/mL (0.358-3.74)
[2024-07-29 10:19] LABS: ANION GAP 11.5 mmol/L (5-15); C-REACTIVE PROTEIN < 0.50 mg/dL (<=0.50); ESTIMATED GFR 107 mL/min (>=60); ETHANOL BLOOD MEDICAL < 3 mg/dL (0-3)
[2024-07-29] MEDS: cloNIDine 0.1 MG Tab PO ONE (10:27)
[2024-07-29] MEDS ORDERED: Lactated Ringers 1,000 ML IV ONE (10:56)
[2024-07-29] MEDS: Ketorolac 15 MG/ML SDV IVPUSH ONE (11:05)
[2024-07-29] MEDS: Metoclopramide 10 MG/2 ML SDV IVPUSH ONE (11:05)
== END 2024-07-29 11:45 | disposition home or self-care (01) ==
LOC: VM.ED 09:17
DX: G44.209 Tension-type headache, unspecified, not intractable (principal); G47.10 Hypersomnia, unspecified; I10 Essential (primary) hypertension; E66.9 Obesity, unspecified; F17.210 Nicotine dependence, cigarettes, uncomplicated; Z68.41 Body mass index [BMI] 40.0-44.9, adult; Z79.899 Other long term (current) drug therapy
CPT/HCPCS: 70450; 80053; 80305; 80307; 81003; 81025; 83735; 84443; 84484; 85025; 86140; 87428; 96374; 96375; 99285; A9270; J1885; J2765; 93010; 99284

== ENCOUNTER 2024-09-09 07:45 | Emergency (ER) | payer MEDICAID, OTHER ==
[2024-09-09] MEDS ORDERED: Sodium Chloride 0.9% 10 ML Syringe FLUSH PRN (08:00)
[2024-09-09 08:10] LABS: BASOPHILS PERCENT AUTO 0.5 % (0.2-1.2); HEMATOCRIT 37.6 % (33.0-47.0); HEMOGLOBIN 13.1 g/dL (12.0-16.0); IMMATURE GRAN ABSOLUTE AUTO 0.01 x10^3/uL (0.00-0.07); LYMPHOCYTES ABSOLUTE AUTO 1.3 x10^3/uL (1.0-4.8); LYMPHOCYTES PERCENT AUTO 21.5 % (25.0-50.0); MEAN CORPUSCULAR HEMOGLOBIN 30.8 pg (26.0-32.0); MEAN CORPUSCULAR HGB CONC 34.8 g/dL (32.0-36.0); MEAN CORPUSCULAR VOLUME 88.5 fL (78.0-93.0); MONOCYTES ABSOLUTE AUTO 0.4 x10^3/uL (0.0-0.8); MONOCYTES PERCENT AUTO 6.5 % (2.0-11.0); NEUTROPHILS ABSOLUTE AUTO 4.2 x10^3/uL (1.8-7.7); NEUTROPHILS PERCENT AUTO 71.3 % (50.0-80.0); PLATELET COUNT,PLT 288 x10^3/uL (130-400); RED BLOOD CELL COUNT 4.25 x10^6/uL (4.00-5.50); WHITE BLOOD CELL COUNT,WBC 5.8 x10^3/uL (4.0-10.0)
[2024-09-09 08:17] LABS: GLUCOSE RANDOM 93 mg/dL (74-100)
[2024-09-09] MEDS: Sodium Chloride 0.9% 1,000 ML IV ONE (08:22)
[2024-09-09 08:34] LABS: A/G RATIO 1.23; ALANINE AMINOTRANSFERASE,ALT 22 U/L (14-59); ALBUMIN 3.7 g/dL (3.4-5.0); ALKALINE PHOSPHATASE 75 U/L (46-116); ASPARTATE AMNIOTRANSFERASE,AST 17 U/L (15-37); BILIRUBIN TOTAL 0.4 mg/dL (0.2-1.0); BLOOD UREA NITROGEN,BUN 19 mg/dL (7-18); CALCIUM 9.5 mg/dL (8.5-10.1); CARBON DIOXIDE,CO2 27 mmol/L (21-32); CHLORIDE,CL 105 mmol/L (98-107); CREATININE 0.8 mg/dL (0.55-1.02); POTASSIUM,K 4.3 mmol/L (3.5-5.1); PROTEIN TOTAL,TP 6.7 g/dL (6.4-8.2); SODIUM,NA 142 mmol/L (136-145)
[2024-09-09 08:39] LABS: ANION GAP 14.3 mmol/L (5-15); ESTIMATED GFR 91 mL/min (>=60)
[2024-09-09] MEDS: Ondansetron 4 MG/2 ML SDV IVPUSH ONE (08:44)
[2024-09-09 09:34] LABS: APPEARANCE,URINE CLEAR (CLEAR); BILIRUBIN,URINE NEGATIVE (NEGATIVE); COLOR,URINE YELLOW (YELLOW); GLUCOSE,URINE NEGATIVE (NEGATIVE); KETONES,URINE NEGATIVE (NEGATIVE); LEUKOCYTE ESTERASE,URINE NEGATIVE (NEGATIVE); NITRITE,URINE NEGATIVE (NEGATIVE); OCCULT BLOOD,URINE MODERATE (NEGATIVE); PH,URINE 5.5 (5.0-8.0); PROTEIN,URINE NEGATIVE (NEGATIVE); UROBILINOGEN,URINE 0.2 EU/dL (0.2)
[2024-09-09 09:41] LABS: RBC,URINE NOT SEEN /HPF (NOT SEEN); SQUAMOUS EPITHELIAL CELLS,UR RARE /HPF (NOT SEEN); WBC,URINE NOT SEEN /HPF (NOT SEEN)
[2024-09-09 09:42] LABS: BACTERIA,URINE NOT SEEN /HPF (NOT SEEN); MUCUS,URINE NOT SEEN /LPF (NOT SEEN)
== END 2024-09-09 10:35 | disposition home or self-care (01) ==
LOC: VM.ED 07:45
DX: R53.1 Weakness (principal); R53.83 Other fatigue; E86.0 Dehydration; R11.0 Nausea; I10 Essential (primary) hypertension; E66.9 Obesity, unspecified; Z98.84 Bariatric surgery status; Z79.899 Other long term (current) drug therapy; Z68.39 Body mass index [BMI] 39.0-39.9, adult
CPT/HCPCS: 70450; 80053; 81001; 84484; 85025; 93005; 93010; 96361; 96374; 99284; 99285-25; J2405; J7030